=== PATIENT | female | born 2000 | race Caucasian/White ===

== ENCOUNTER 2022-07-04 17:41 | Emergency (ER) | payer OTHER ==
[2022-07-04] MEDS ORDERED: SODIUM CHLORIDE 0.9% 1,000 ML IV STA (17:50)
[2022-07-04] MEDS ORDERED: ONDANSETRON 4 MG/2 ML VIAL IVP STA (17:55)
[2022-07-04] MEDS ORDERED: KETOROLAC 15 MG/ML 1 ML VIAL IVP STA (17:55)
[2022-07-04 18:09] LABS: Basophils % (A) 0 %; Eosinophils # (A) 0.1 k/uL (0-0.7); Eosinophils % (A) 2 %; HCT 40.5 % (34.0-46.0); HGB 13.8 gm/dL (11.4-16.0); Lymphocytes # (A) 2.4 k/uL (1.0-4.8); Lymphocytes % (A) 43 %; MCH 30.4 pg (25.0-35.0); MCV 89.6 fL (80.0-100.0); Mean Platelet Volume 7.8; Monocytes # (A) 0.4 k/uL (0-1.0); Monocytes % (A) 7 %; Neutrophils # (A) 2.5 k/uL (1.3-7.7); Neutrophils % (A) 46 %; Platelet Count 283 k/uL (150-450); RBC 4.52 m/uL (3.80-5.40); RDW 12.7 % (11.5-15.5); WBC 5.5 k/uL (4.0-11.0)
--- NOTE | 2022-07-04 18:13 | ED ---
Abdominal Pain HPI - General Chief Complaint: Abdominal Pain Stated Complaint: Abd Pain Time Seen by Provider: 07/04/22 17:49 Source: patient Mode of arrival: ambulatory Limitations: no limitations, physical limitation - History of Present Illness Initial Comments: Patient is a 21-year-old female who presents to the emergency department with a chief complaint abdominal pain. Started 2 weeks ago. Patient reports intermittent pain in her upper abdomen which she describes as pins and needles. It moves all over the upper right, upper middle, and upper left abdomen. No pain medication yet. Pain is not related to food intake. Patient has nausea without vomiting. No fever, chills, constipation, diarrhea, burning with urination, blood in the urine. Patient does smoke were monitored daily. She denies alcohol use. - Related Data Previous Rx's Medication Instructions Recorded Ibuprofen [Motrin] 800 mg PO Q8HR PRN #30 tab 07/04/22 Ondansetron Odt [Zofran Odt] 4 mg PO Q8HR PRN #10 tab 07/04/22 Allergies Allergy/AdvReac Type Severity Reaction Status Date / Time No Known Allergies Allergy Verified 07/04/22 18:52 Review of Systems ROS Statement: Those systems with pertinent positive or pertinent negative responses have been documented in the HPI. ROS Other: All systems not noted in ROS Statement are negative. Past Medical History Past Medical History: Asthma History of Any Multi-Drug Resistant Organisms: None Reported Past Surgical History: No Surgical Hx Reported Past Psychological History: No Psychological Hx Reported Smoking Status: Vaper Past Alcohol Use History: None Reported Past Drug Use History: Marijuana General Exam Limitations: no limitations, physical limitation Respiratory exam: Present: normal lung sounds bilaterally. Absent: respiratory distress, wheezes, rales, rhonchi, stridor Cardiovascular Exam: Present: regular rate, normal rhythm, normal heart sounds. Absent: systolic murmur, diastolic murmur, rubs, gallop, clicks GI/Abdominal exam: Present: soft, tenderness (RUQ), normal bowel sounds. Absent: distended, guarding, rebound, rigid Neurological exam: Present: alert, oriented X3, CN II-XII intact Psychiatric exam: Present: normal affect, normal mood Skin exam: Present: warm, dry, intact, normal color. Absent: rash Course Vital Signs 07/04/22 17:44 Temperature 98.7 F Pulse Rate 88 Respiratory 20 Rate Blood Pressure 145/86 O2 Sat by Pulse 99 Oximetry Medical Decision Making - Medical Decision Making Was pt. sent in by a medical professional or institution (HEBERT Crocker, LUBRICATION SERVICER, urgent care, hospital, or skilled nursing...) When possible be specific @ -No Did you speak to anyone other than the patient for history (EMS, parent, family, police, friend...)? What history was obtained from this source @ -No Did you review nursing and triage notes (agree or disagree)? Why? @ -I reviewed and agree with nursing and triage notes Were old charts reviewed (outside hosp., previous admission, EMS record, old EKG, old radiological studies, urgent care reports/EKG's, skilled nursing records)? Report findings @ -No old charts were reviewed Differential Diagnosis (chest pain, altered mental status, abdominal pain women, abdominal pain men, vaginal bleeding, weakness, fever, dyspnea, syncope, headache, dizziness, GI bleed, back pain, seizure, CVA, palpatations, mental health)? @ -Differential Abdominal Pain Women: Appendicitis, Cholecystitis, diverticulosis, ischemic bowel, pancreatitis, hepatitis, UTI, gastroenteritis, AAA, incarcerated hernia, bowel obstruction, constipation, inflammatory bowel, hepatitis, peptic ulcer disease, splenic infarction, perforated viscus, vulvitis, ovarian torsion, PID, kidney stone, placenta abruption, this is not meant to be an all-inclusive list EKG interpreted by me (3pts min.). @ -[As above] X-rays interpreted by me (1pt min.). @ -[None done] CT interpreted by me (1pt min.). @ -[CT of abdomen and pelvis shows a 2 cm right ovarian cyst U/S interpreted by me (1pt. min.). @ -No.Ultrasound report shows no gallstones or dilated ducts. There is likely minimal pericholecystic fluid. No focal limited effect What testing was considered but not performed or refused? (CT, X-rays, U/S, labs)? Why? @ -[None] What meds were considered but not given or refused? Why? @ -[None] Did you discuss the management of the patient with other professionals (professionals i.e. HEBERT Crocker, LUBRICATION SERVICER, lab, RT, psych nurse, social media job titles, engagement mgr, teacher, motorcycle police officer, case planner)? Give summary @ -[No] Was smoking cessation discussed for >3mins.? @ -[No] Was critical care preformed (if so, how long)? @ -[No] Were there social determinants of health that impacted care today? How? (Homelessness, low income, unemployed, alcoholism, drug addiction, transportation, low edu. Level, literacy, decrease access to med. care, assisted, rehab)? @ -[No] Was there de-escalation of care discussed even if they declined (Discuss DNR or withdrawal of care, Hospice)? DNR status @ -[No] What co-morbidities impacted this encounter? (DM, HTN, Smoking, COPD, CAD, Cancer, CVA, ARF, Chemo, Hep., AIDS, mental health diagnosis, sleep apnea, morbid obesity)? @ -[None] Was patient admitted / discharged? Hospital course, mention meds given and route, prescriptions, significant lab abnormalities, going to OR and other pertinent info. @ -Presenting with upper abdominal pain. There is mild right upper quadrant tenderness. Laboratory studies unremarkable. Ultrasound shows no gallstones or dilated ducts. CT shows a right ovarian cyst. Patient does not have any lower abdominal pain or tenderness. She has no fever, no vomiting. She is not . Clinical presentation is not consistent with ovarian cyst.. Patient feeling much improved after Toradol and Zofran. She will be discharged with instruction to follow up with PCP. Undiagnosed new problem with uncertain prognosis? @ -[No] Drug Therapy requiring intensive monitoring for toxicity (Heparin, Nitro, Insulin, Cardizem)? @ -[No] Were any procedures done? @ -[No] Diagnosis/symptom? @ -upper abdominal pain Acute, or Chronic, or Acute on Chronic? @ -acute Uncomplicated (without systemic symptoms) or Complicated (systemic symptoms)? @ -[default] Side effects of treatment? @ -[No] Exacerbation, Progression, or Severe Exacerbation? @ -[No] Poses a threat to life or bodily function? How? (Chest pain, [place], [place], pneumonia, PE, COPD, DKA, ARF, appy, cholecystitis, CVA, Diverticulitis, Homicidal, Suicidal, threat to staff... and all critical care pts) @ -[No] Dr. Godoy is my attending - Lab Data Result diagrams: 07/04/22 18:00 07/04/22 18:00 Lab Results 07/04/22 07/04/22 07/04/22 Range/Units 18:00 18:00 18:15 WBC 5.5 (4.0-11.0) k/uL RBC 4.52 (3.80-5.40) m/uL Hgb 13.8 (11.4-16.0) gm/dL Hct 40.5 (34.0-46.0) % MCV 89.6 (80.0-100.0) fL MCH 30.4 (25.0-35.0) pg MCHC 34.0 (31.0-37.0) g/dL RDW 12.7 (11.5-15.5) % Plt Count 283 (150-450) k/uL MPV 7.8 Neutrophils % 46 % Lymphocytes % 43 % Monocytes % 7 % Eosinophils % 2 % Basophils % 0 % Neutrophils # 2.5 (1.3-7.7) k/uL Lymphocytes # 2.4 (1.0-4.8) k/uL Monocytes # 0.4 (0-1.0) k/uL Eosinophils # 0.1 (0-0.7) k/uL Basophils # 0.0 (0-0.2) k/uL Sodium 138 (137-145) mmol/L Potassium 4.6 (3.5-5.1) mmol/L Chloride 106 (98-107) mmol/L Carbon Dioxide 22 (22-30) mmol/L Anion Gap 10 mmol/L BUN 11 (7-17) mg/dL Creatinine 0.55 (0.52-1.04) mg/dL Est GFR (CKD-EPI)AfAm >90 (>60 ml/min/1.73 sqM) Est GFR (CKD-EPI)NonAf >90 (>60 ml/min/1.73 sqM) Glucose 82 (74-99) mg/dL Calcium 9.7 (8.4-10.2) mg/dL Total Bilirubin 1.1 (0.2-1.3) mg/dL AST 27 (14-36) U/L ALT 15 (4-34) U/L Alkaline Phosphatase 51 (38-126) U/L Total Protein 8.4 H (6.3-8.2) g/dL Albumin 4.9 (3.5-5.0) g/dL Lipase 76 (23-300) U/L Urine Color Yellow Urine Appearance Cloudy H (Clear) Urine pH 7.5 (5.0-8.0) Ur Specific [place] 1.016 (1.001-1.035) Urine Protein Negative (Negative) Urine Glucose (UA) Negative (Negative) Urine Ketones Negative (Negative) Urine Blood Negative (Negative) Urine Nitrite Negative (Negative) Urine Bilirubin Negative (Negative) Urine Urobilinogen <2.0 (<2.0) mg/dL Ur Leukocyte Esterase Negative (Negative) Urine RBC 1 (0-5) /hpf Urine WBC 8 H (0-5) /hpf Ur Squamous Epith Cells 6 H (0-4) /hpf Amorphous Sediment Few H (None) /hpf Urine Mucus Occasional H (None) /hpf Urine HCG, Qual (Not Detectd) 07/04/22 Range/Units 18:15 WBC (4.0-11.0) k/uL RBC (3.80-5.40) m/uL Hgb (11.4-16.0) gm/dL Hct (34.0-46.0) % MCV (80.0-100.0) fL MCH (25.0-35.0) pg MCHC (31.0-37.0) g/dL RDW (11.5-15.5) % Plt Count (150-450) k/uL MPV Neutrophils % % Lymphocytes % % Monocytes % % Eosinophils % % Basophils % % Neutrophils # (1.3-7.7) k/uL Lymphocytes # (1.0-4.8) k/uL Monocytes # (0-1.0) k/uL Eosinophils # (0-0.7) k/uL Basophils # (0-0.2) k/uL Sodium (137-145) mmol/L Potassium (3.5-5.1) mmol/L Chloride (98-107) mmol/L Carbon Dioxide (22-30) mmol/L Anion Gap mmol/L BUN (7-17) mg/dL Creatinine (0.52-1.04) mg/dL Est GFR (CKD-EPI)AfAm (>60 ml/min/1.73 sqM) Est GFR (CKD-EPI)NonAf (>60 ml/min/1.73 sqM) Glucose (74-99) mg/dL Calcium (8.4-10.2) mg/dL Total Bilirubin (0.2-1.3) mg/dL AST (14-36) U/L ALT (4-34) U/L Alkaline Phosphatase (38-126) U/L Total Protein (6.3-8.2) g/dL Albumin (3.5-5.0) g/dL Lipase (23-300) U/L Urine Color Urine Appearance (Clear) Urine pH (5.0-8.0) Ur Specific [place] (1.001-1.035) Urine Protein (Negative) Urine Glucose (UA) (Negative) Urine Ketones (Negative) Urine Blood (Negative) Urine Nitrite (Negative) Urine Bilirubin (Negative) Urine Urobilinogen (<2.0) mg/dL Ur Leukocyte Esterase (Negative) Urine RBC (0-5) /hpf Urine WBC (0-5) /hpf Ur Squamous Epith Cells (0-4) /hpf Amorphous Sediment (None) /hpf Urine Mucus (None) /hpf Urine HCG, Qual Not Detected (Not Detectd) Disposition Clinical Impression: Upper abdominal pain Disposition: HOME SELF-CARE Condition: Good Instructions (If sedation given, give patient instructions): Abdominal Pain (ED) Additional Instructions: Take medication as directed. Follow-up with primary care provider in one to 2 days. You will need ultrasound for cyst on right ovary. Return to the emergency department if you experience new, concerning, or worsening symptoms. Prescriptions: Ibuprofen [Motrin] 800 mg PO Q8HR PRN #30 tab PRN Reason: Pain Ondansetron Odt [Zofran Odt] 4 mg PO Q8HR PRN #10 tab PRN Reason: Nausea Is patient prescribed a controlled substance at d/c from ED?: No Referrals: None,Stated [Primary Care Provider] - 1-2 days
[2022-07-04 18:18] LABS: ALT 15 U/L (4-34); African American GFR (CKD) >90 (>60 ml/min/1.73 sqM); Albumin 4.9 g/dL (3.5-5.0); Anion Gap 10 mmol/L; Blood Urea Nitrogen 11 mg/dL (7-17); Calcium 9.7 mg/dL (8.4-10.2); Carbon Dioxide 22 mmol/L (22-30); Chloride 106 mmol/L (98-107); Glucose 82 mg/dL (74-99); Lipase 76 U/L (23-300); Non-African American GFR(CKD) >90 (>60 ml/min/1.73 sqM); Sodium 138 mmol/L (137-145); Total Bilirubin 1.1 mg/dL (0.2-1.3); Total Protein 8.4 g/dL (6.3-8.2)
[2022-07-04 18:27] LABS: AST 27 U/L (14-36); Potassium 4.6 mmol/L (3.5-5.1)
[2022-07-04 18:28] LABS: Alkaline Phosphatase 51 U/L (38-126)
[2022-07-04 18:38] LABS: Amorphous Sediment,Urine Few /hpf; Appearance,Urine Cloudy (Clear); Bilirubin,Urine Negative (Negative); Blood,Urine Negative (Negative); Color,Urine Yellow; Glucose,Urine (UA) Negative (Negative); Ketones,Urine Negative (Negative); Leukocyte Esterase,Urine Negative (Negative); Mucus,Urine Occasional /hpf; Nitrite,Urine Negative (Negative); PH, Urine 7.5 (5.0-8.0); Protein,Urine Negative (Negative); RBC,Urine 1 /hpf (0-5); Specific Gravity,Urine 1.016 (1.001-1.035); Squamous Epithelial Cell,Urine 6 /hpf (0-4); Urobilinogen,Urine <2.0 mg/dL (<2.0); WBC,Urine 8 /hpf (0-5)
--- NOTE | 2022-07-04 19:11 | US ---
EXAMINATION TYPE: US abdomen limited DATE OF EXAM: 07/04/2022 COMPARISON: NONE CLINICAL HISTORY: RUQ pain. Pt states nausea and pain TECHNIQUE: Multiple sonographic images of the right upper quadrant are obtained. FINDINGS: EXAM MEASUREMENTS: Liver Length: 16.4 cm Gallbladder Wall: 0.3 cm CBD: 0.3 cm Right Kidney: 10.9 x 3.5 x 4.2 cm MEDICAL TECHNOLOGIST NOTES: Pancreas: wnl Liver: wnl Gallbladder: Lumen clear, possible pericholecystic fluid Evidence for sonographic Saenz's sign: Yes CBD: wnl Right Kidney: wnl IMPRESSION: No gallstones or dilated ducts. There is likely minimal pericholecystic fluid. No focal liver defect.
--- NOTE | 2022-07-04 19:51 | CT ---
EXAMINATION TYPE: CT abdomen pelvis w con DATE OF EXAM: 07/04/2022 COMPARISON: HISTORY: epigastric pain CT DLP: 591.7 mGycm Automated exposure control for dose reduction was used. CONTRAST: Performed with IV Contrast, patient injected with 100ml mL of Isovue 300. Images obtained from the diaphragm to the floor the pelvis with the IV contrast. The lung bases are clear. No pleural effusion. Heart size is normal. No pericardial effusion. Liver s pleen stomach gallbladder pancreas appear intact. The bile ducts are not dilated. There is no adrenal mass. Kidneys show satisfactory contrast opacification. No hydronephrosis. Ureter s are not dilated. No retroperitoneal adenopathy. Bladder distends smoothly. No inguinal hernia. Uter us is anteverted. There is moderate low-density free fluid in the pelvis. There is an irregular 2 cm cyst on the right ovary. There is tiny amount of free fluid in the right paracolic gutter. Appendix is posterior and medial ad jacent to the sacrum appears normal. The lumbar vertebrae have normal alignment. Posterior elements are intact. Bony pelvis is intact. The hip joints are intact. IMPRESSION: There is low-density free fluid in the pelvis. Irregular right ovarian cyst. Normal appendix.
[2022-07-04 20:04] VITALS: BP 133/80; PULSE 97; RESP 18; TEMP 98.4
== END 2022-07-04 20:08 | disposition home or self-care (01) ==
LOC: EC 17:41
DX: R10.11 Right upper quadrant pain (principal); J45.909 Unspecified asthma, uncomplicated; F17.290 Nicotine dependence, other tobacco product, uncomplicated; F12.90 Cannabis use, unspecified, uncomplicated
CPT/HCPCS: 96361 ×3; 96374 ×2; 96375 ×2; 99284 ×2; 36415; 80053; 83690; 85025; 81001; 81025; 76705; 74177; J2405; J1885; Q9967